=== PATIENT | female | born 1965 | race Caucasian/White ===

== ENCOUNTER 2024-08-10 16:01 | Emergency (ER) | payer BC ==
[~2024-08-10] VITALS: Ht 160 cm; Wt 74.8 kg
[2024-08-10] MEDS ORDERED: IBUP-2077 PO (17:54)
[2024-08-10 18:45] VITALS: BP 150/97; PULSE 85; RESP 16; TEMP 98.3; O2SAT 98
== END 2024-08-10 18:57 | disposition home or self-care (01) ==
LOC: EDH 16:01
DX: S90.31XA Contusion of right foot, initial encounter (principal); S90.32XA Contusion of left foot, initial encounter; S93.492A Sprain of other ligament of left ankle, initial encounter; S86.012A Strain of left Achilles tendon, initial encounter; E78.00 Pure hypercholesterolemia, unspecified; Z90.710 Acquired absence of both cervix and uterus; Z98.890 Other specified postprocedural states; W01.0XXA Fall on same level from slipping, tripping and stumbling without subsequent striking against object, initial encounter; Y93.01 Activity, walking, marching and hiking; Y92.098 Other place in other non-institutional residence as the place of occurrence of the external cause; Y99.8 Other external cause status
CPT/HCPCS: 29515; 73590; 73630